=== PATIENT | female | born 1970 | race Caucasian/White ===

== ENCOUNTER → 2017-05-16 | Emergency (ER) | payer BC ==
[~2017-05-16] VITALS: Ht 160 cm; Wt 68.0 kg
[~2017-05-16] MED LIST: ALBU8.5H3 INH; ALBUTEROL 0.083% (NEB) 2.5 MG/3 ML AMP HHN STA; ALBUTEROL 0.083% (NEB) 2.5 MG/3 ML AMP ONE; DIPHENHYDRAMINE 50 MG INJ IV ONE; EPINEPHrine 1 MG INJ SC STA; FAMOTIDINE 20 MG INJ IV ONE; FEXO60TA20 PO; HYDR-762 PO; LORA1TAB PO; METHYLPREDNISOLONE 125 MG INJ IV ONE; MONT10TA21 PO; SOD CHLORIDE 0.9% 1,000 ML IV ONE; SYMB80120 INH
[2017-05-16 03:13] VITALS: Ht 160 cm; Wt 68.0 kg
--- NOTE | 2017-05-16 05:31 | ERD ---
ER Documentation Chief Complaint Chief Complaint diff breathing, SOB (hxof allergic rxn / asthma) HPI 46-year-old female comes in with complaints of difficulty breathing and mild drainage. Patient history of multiple allergic reactions in the past. No nausea no vomiting no chills. No tongue swelling. No other current complaints ROS All systems reviewed and are negative except as per history of present illness. Medications Home Meds Active Scripts Lorazepam* (Lorazepam*) 1 Mg Tablet, 1 MG PO Q8H Y for ANXIETY, #10 Prov:ERIKA SULLIVAN 01/06/15 Hydrocodone Bit-Acetaminophen* (Biloxi*) 10-325 Mg Tablet, 1 TAB PO Q4H Y for PAIN, #20 TAB Prov:ERIKA SULLIVAN 12/10/14 Reported Medications Budesonide-Formoterol Fumarate* (Symbicort*) 80-4.5 Inha, 1 PUFF INH BID, INH 12/10/14 Montelukast Sodium* (Singulair*) 10 Mg Tablet, 10 MG PO HS, TAB 12/10/14 Fexofenadine Hcl* (Orly*) 60 Mg Tablet, 60 MG PO DAILY, TAB 12/10/14 Albuterol Sulfate* (Proair HFA*) 8.5 Gm Hfa.aer.ad, 2 PUFF INH Q4H Y for WHEEZING AND SOB, INH 12/10/14 Allergies Allergies: Coded Allergies: No Known Drug Allergies (Verified Allergy, Unknown, 01/06/15) PMhx/Soc Medical and Surgical Hx: pt denies Medical Hx, pt denies Surgical Hx History of Surgery: No Anesthesia Reaction: No Hx Neurological Disorder: No Hx Respiratory Disorders: Yes (asthma) Hx Cardiac Disorders: No Hx Psychiatric Problems: No Hx Miscellaneous Medical Probl: No Hx Alcohol Use: No Hx Substance Use: No Hx Tobacco Use: No Smoking Status: Never smoker Physical Exam Vitals Vital Signs Date Time Temp Pulse Resp B/P Pulse Ox O2 Delivery O2 Flow Rate FiO2 05/16/17 03:28 99 20 97 21 05/16/17 03:13 98.1 115 25 111/71 95 Physical Exam Const: [] Head: Atraumatic Eyes: Normal Conjunctiva ENT: Normal External Ears, Nose and Mouth. Neck: Full range of motion..~ No meningismus. Resp: Clear to auscultation bilaterally Cardio: Regular rate and rhythm, no murmurs Abd: Soft, non tender, non distended. Normal bowel sounds Skin: No petechiae or rashes Back: No midline or flank tenderness Ext: No cyanosis, or edema Neur: Awake and alert Psych: Normal Mood and Affect Results 24 hrs Current Medications Medications (Trade) Dose Ordered Sig/Nicolette Route PRN Reason Start Time Stop Time Status Last Admin Dose Admin Albuterol (Proventil 0.083% (Neb)) 5 mg ONCE RESP THERAPY STAT HHN 05/16/17 03:24 05/16/17 03:25 DC 05/16/17 03:28 Epinephrine (EPINEPHrine) 0.3 mg ONCE STAT SC 05/16/17 03:14 05/16/17 03:25 DC 05/16/17 03:27 Diphenhydramine HCl (Benadryl) 50 mg ONCE ONCE IV 05/16/17 03:30 05/16/17 03:31 DC 05/16/17 03:33 Methylprednisolone Sodium Succinate (Solu-Medrol) 125 mg ONCE ONCE IV 05/16/17 03:30 05/16/17 03:31 DC 05/16/17 03:34 Famotidine 20 mg 20 mg ONCE ONCE IV 05/16/17 03:30 05/16/17 03:31 DC 05/16/17 03:33 Sodium Chloride (NS) 1,000 ml @ 1,000 mls/hr Q1H ONCE IV 05/16/17 03:30 05/16/17 04:29 DC 05/16/17 03:33 Procedures/MDM Medical decision-makin-year-old female mild allergic reaction. Treated here. With stable for outpatient management. Told to return for any return of symptoms. Departure Diagnosis: Primary Impression: Allergic reaction Encounter type: initial encounter Qualified Code: T78.40XA - Allergic reaction, initial encounter Condition: Stable ERIKA SULLIVAN May 16, 2017 05:31
[2017-05-16 05:37] VITALS: BP 92/48; PULSE 88; RESP 23
== END | disposition home or self-care (01) ==
LOC: NHS 03:09
DX: R06.02 Shortness of breath (principal)
CPT/HCPCS: 94664; 96372; 96374; 96375; J1200; J2930; J7030

== ENCOUNTER 2017-10-21 08:14 | Emergency (ER) | END 2017-10-21 10:33 | disposition home or self-care (01) ==

== ENCOUNTER → 2017-12-04 | Outpatient (CLI) | END | disposition home or self-care (01) ==

== ENCOUNTER → 2017-12-06 | Outpatient (CLI) | END | disposition home or self-care (01) ==